=== PATIENT | male | born 2000 | race Caucasian/White ===

== ENCOUNTER 2025-04-07 07:11 | Outpatient (OUT) | payer BC, OTHER, SELFPAY ==
--- OUTSIDE RECORDS SUMMARY | 2024-11-04 05:00 | XMS_ITS ---
Author Organization 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 Name Role Phone Alo Mitchell Primary Care Provider Allergies Allergen (clinical drug ingredient) Drug/Non Drug Allergy documented on EMR Reaction Allergy Type Onset Date Status promethazine Phenergan loopy Drug Allergy Acti ve REASON FOR VISIT Presents to office with mom for cough, runny nose, sleeping the day, headache, fever x2 days Medications Medication SIG (Take, Route, Frequency, Duration) Notes Start Date End Date Status predniSONE 20 MG 3 tablets Orally Onc e a day for 5 days 11/04/2024 Active Clindamycin Phos-Benzoyl Perox 1.2-5 % APPLY TO FACE EVERY MORNING External for 90 Days Active Amoxicillin-Pot Clavulanate 875-125 MG 1 tablet Orally every 12 hrs for 10 days 10/24/2024 Active Ammonium Lactate 12 % 1 application Exte rnally Twice a day Active Tamiflu 75 MG 1 capsule Orally Twi ce a day for 5 days 11/04/2024 Active Tamiflu 75 MG 1 capsule Orally Twi ce a day for 5 days 11/04/2024 Active Doxycycline Hyclate 100 MG 1 capsule Ora lly Once a day Active Social History Tobacco Use: Social History Observation Description Date Details (start date - stop date) Never Smoker NA - NA Tobacco Use/Smoking Question Answer Notes Patient is a nonsmoker AUDIT-C (Standard) Question Answer Notes Did you have a drink containing alcohol in the p ast year? No Points 0 Interpretation Negative Vital Signs Temperature 98.2 degrees Fahrenheit 11/04/20 24 Blood pressure systolic 122 mm Hg 11/04/20 24 Blood pressure diastolic 82 mm Hg 024 Height 72 in 11/04/2024 Weight 194.8 lbs 11/04/2024 BMI 26.42 kg/m2 11/04/2024 Encounters Encounter Location Date Provider Diagnosis [facility] [address] [place] [address] 11/04/2024 Alo Micthell Acute bronchitis, unspecified organism J20.9 Assessments Encounter Date Diagnosis (ICD Code) Assessment Notes Treatment Notes Treatment Clinical Notes Section Notes 11/04/2024 Acute bronchitis, unspecified organism (ICD-10 - J20.9) Rest and drink more liquids, especially water. You may use a humidifier or vaporizer to help keep the drainage moist. Oabn-kvx-swwrlxz Nasal Saline may help the stuffy and runny nose. Use Ibuprofen and or Tylenol as needed for fever, chills, body aches or pain. Children 5 years old should not be given jhyg-ooa-feayvac cough and cold medications such as guaifenesin and dextromethorphan. If you're over age 5, you may try bwbs-bjx-qiymuuj cold medications such as guaifenesin and dextromethorphan, or multi-symptom cold reliever such as Dayquil to help reduce the symptoms. Antibiotics have been prescribed. You should take these until completed and follow the directions. Antibiotics can sometimes cause upset stomach, and in rare cases, serious allergic reactions or serious gastrointestinal problems. If you start having severe abdominal pain, severe vomiting, or bloody diarrhea, you should be reevaluated by your physician or urgent care immediately. Follow up with your Primary Care Provider or return to clinic if symptoms do not improve within 3-5 days. If you develop severe symptoms such as shortness of breath, repeated vomiting, coughing up blood, or chest pain you should go to the emergency room or call 911 Plan Of Treatment Medication Medication Name Sig Start Date Stop Date Notes predniSONE 20 MG 3 tablets Orally Once a day for 5 days Tamiflu 75 MG 1 capsule Orally Twice a day for 5 days 10/10 Tamiflu 75 MG 1 capsule Orally Twice a day for 5 days 10/10 Treatment Notes Assessment Notes Acute bronchitis, unspecified organism R est and drink more liquids, especially water. You may use a humidifier or vaporizer to help keep the drainage moist. Udxf-oru-psoayyt Nasal Saline may help the stuffy and runny nose. Use Ibuprofen and or Tylenol as needed for fever, chills, body aches or pain. Children 5 years old should not be given tezo-zli-gdlxgjf cough and cold medications such as guaifenesin and dextromethorphan. If you're over age 5, you may try jydq-ygy-nhnuqkr cold medications such as guaifenesin and dextromethorphan, or multi-symptom cold reliever such as Dayquil to help reduce the symptoms. Antibiotics have been prescribed. You should take these until completed and follow the directions. Antibiotics can sometimes cause upset stomach, and in rare cases, serious allergic reactions or serious gastrointestinal problems. If you start having severe abdominal pain, severe vomiting, or bloody diarrhea, you should be reevaluated by your physician or urgent care immediately. Follow up with your Primary Care Provider or return to clinic if symptoms do not improve within 3-5 days. If you develop severe symptoms such as shortness of breath, repeated vomiting, coughing up blood, or chest pain you should go to the emergency room or call 911 Next Appt Details Follow Up: 3-5 days if not i mproving, Reason: Progress Notes * AMAAD Khairamesh YolandaDOB: 8 (24 yo M)Acc No.[id number]:11/04/2024 Progress Note Patient: Rosemary PARIKH [facility] Karley :2000 A ge:24 Y S ex:Male Date:11/04/2024 Address:[address] [place], [place] [id number] Check In:08:40 AM ESTCheck O ut:09:58 AM EST Subjective: * Chief Complaints: * P resents to office with mom for cough, runny nose, sleeping the day, headache, fever x2 days * HPI: G eneral: sleepign more copugh - and getter worse - mom iwht inf a. B ronchitis: The patient complains of symptoms of bronchitis. The symptoms have been present for 1-2 days. The symptoms are moderate. The patient has not been exposed to sick contacts. Symptomatic treatment has included OTC medication. Associated symptoms include nasal congestion, postnasal drainage, congested ears, cough, fever, chills, body aches. * ROS: E NT: Ear pain d enies. H oarseness d enies. ? C ardiovascular: Edema d enies. P alpitations d enies. ? R espiratory: Comments S [facility] for details. G astrointestinal: Abdominal pain d enies. D iarrhea d enies. N ausea d enies. S kin: Rash d enies. * Active Problem List F90.9 ADHD (attention defi cit hyperactivity disorder) Modified On:02/11/2024U Status:confirmed F84.0 Autism Modified On:02/11/2024 Status:confirmed J21.9 Acute bronchiolitis Modified On:12/14/2023 Status:confirmed K11.5 Salivary duct calcul i Modified On:02/11/2024 Status:confirmed * Medical History: * Surgical History: T ubes in Bilateral Ears * Hospitalization/Major Diagno stic Procedure: * Family History: F ather: alive. M other: alive. S ister(s): alive. 1 sister(s) - healthy. . * Social History: T obacco Use: T obacco Use/Smoking P atient is a n onsmoker D rug/Alcohol: A LESLIE-C (Standard) D id you have a drink containing alcohol in the past year? N o P oints 0 I nterpretation N egative * Medications: T akingAmmonium Lactate 12 % Lotion 1 application Externally Twice a day Amoxicillin-Pot Clavulanate 875-125 MG Tablet 1 tablet Orally every 12 hrs Clindamycin Phos-Benzoyl Perox 1.2-5 % Gel APPLY TO FACE EVERY MORNING External Doxycycline Hyclate 100 MG Capsule 1 capsule Orally Once a day Medication List reviewed and reconciled with the patientTaking Ammonium Lactate 12 % Lotion 1 application Externally Twice a day Taking Amoxicillin-Pot Clavulanate 875-125 MG Tablet 1 tablet Orally every 12 hrs Taking Clindamycin Phos-Benzoyl Perox 1.2-5 % Gel APPLY TO FACE EVERY MORNING External Taking Doxycycline Hyclate 100 MG Capsule 1 capsule Orally Once a day Medication List reviewed and reconciled with the patient * Allergies: P henergan: loopyno[Allergies Verified] Objective: * Vitals: W t:194.8lbs, Ht: 72 in, BP:122/82mm Hg, Temp:98.2F, BMI:26.42Index, Ht-cm: 182.88 cm, Wt-k.36 kg. * Examination: G eneral Examination: GENERAL APPEARANCE: in no acute distress. EYES: EOMI. EARS: auditory canal clear, middle ear effusion noted.? NOSE: clear discharge, turbinates pale and swollen. ORAL CAVITY: mucosa moist. THROAT: no erythema, post-nasal drainage noted. NECK: neck supple, no thyromegaly. LYMPH NODES: n o cervical adenopathy. LUNGS: unlabored, clear to auscultation bilaterally. CARDIO: n o murmurs, regular rate and rhythm. ABDOMEN: bowel sounds present, no organomegaly . ? Assessment: * Assessment: 1. A cute bronchitis, unspecified organism - J20.9 (Primary) Plan: * Treatment: * Procedure Codes: * Preventive Medicine: Screenings/Counseling: B MD ACTION PLAN Above Normal BMI Follow-up D ietary management education, guidance, and counseling See treatment section of progress note for complete details of management plan. * Follow Up: 3 -5 days if not improving * * Sign off status: Completed Visit Status: C HK (Check Out) true * Provider: Joyce Mitchell ([facility])MD Date: 01/05/2024 Generated for Kee antoine/Perfecto/eTransmitting on: 0 04/07/2025 07:13 AM EDT History and Physical Notes * HPI (History of Present Illness) Category Sub-Category Detail Notes Category Not es General sleepign more copugh - and getter worse - mom iwht inf a Examination Category Sub-Category Detail Notes Category Not es General Examination GENERAL APPEARANCE: in no acute di stress EYES: EOMI EARS: auditory canal clear , middle ear effusion noted NOSE: clear discharge, tur binates pale and swollen THROAT: no erythema, post-na kalpesh drainage noted NECK: neck supple, no thyr omegaly CARDIO: no murmurs, regular rate and rhythm LUNGS: unlabored, clear to auscultation bilaterally ABDOMEN: bowel sounds present , no organomegaly LYMPH NODES: no cervical adenopat hy ORAL CAVITY: mucosa moist
--- OUTSIDE RECORDS SUMMARY | 2024-12-05 13:00 | XMS_ITS ---
Author Organization [facility] [place] Address [address] [place] [address] Care Team Providers Care Engine Assembler Name Role Phone Alo Mitchell Primary Care Provider Allergies Allergen (clinical drug ingredient) Drug/Non Drug Allergy documented on EMR Reaction Allergy Type Onset Date Status promethazine Phenergan loopy Drug Allergy Acti ve REASON FOR VISIT Agueda had influenza A- since then has had a lingering cough, Last week had fever, vomiting, diarrhea, OTC Severe cold and cough during the day, Nyquil at night Medications Medication SIG (Take, Route, Frequency, Duration) Notes Start Date End Date Status Doxycycline Hyclate 100 MG 1 capsule Ora lly Once a day Active Clindamycin Phos-Benzoyl Perox 1.2-5 % APPLY TO FACE EVERY MORNING External for 90 Days Active Amoxicillin-Pot Clavulanate 875-125 MG 1 tablet Orally every 12 hrs for 10 days 12/05/2024 Active Ammonium Lactate 12 % 1 application Exte rnally Twice a day Active Social History Tobacco Use: Social History Observation Description Date Details (start date - stop date) Never Smoker NA - NA Tobacco Use/Smoking Question Answer Notes Patient is a nonsmoker Vital Signs Temperature 98.1 degrees Fahrenheit 12/05/19 25 Blood pressure systolic 116 mm Hg 12/05/19 25 Blood pressure diastolic 74 mm Hg 025 Height 72 in 12/05/2024 Weight 196.8 lbs 12/05/2024 BMI 26.69 kg/m2 12/05/2024 Encounters Encounter Location Date Provider Diagnosis [facility] [address] [place] [address] 12/05/2024 Alo Mitchell Acute non-recurrent sinusitis, unspecified location J01.90 and Nasal congestion R09.81 Assessments Encounter Date Diagnosis (ICD Code) Assessment Notes Treatment Notes Treatment Clinical Notes Section Notes 12/05/2024 Acute non-recurrent sinusitis, unspecified location (ICD-10 - J01.90) Rest and drink more liquids, especially water. You may use a humidifier or vaporizer to help keep the drainage moist. Hube-ize-yldrmjo Nasal Saline may help the stuffy and runny nose. Use Ibuprofen and or Tylenol as needed for fever, chills, body aches or pain. Children 5 years old should not be given byjp-emx-esktapm cough and cold medications such as guaifenesin and dextromethorphan. If you're over age 5, you may try mpqf-mzc-repqegp cold medications such as guaifenesin and dextromethorphan, [...] if symptoms do not improve within 3-5 days 12/05/2024 Nasal congestion (ICD-10 - R09.81) Plan Of Treatment Medication Medication Name Sig Start Date Stop Date Notes Amoxicillin-Pot Clavulanate 875-125 MG 1 tablet Orally every 12 hrs for 10 days 12/05/2024 Treatment Notes Assessment Notes Acute non-recurrent sinusiti s, unspecified location Rest and drink more liquids, especially water. You may use a humidifier or vaporizer to help keep the drainage moist. Xqen-xrh-trhfgvl Nasal Saline may help the stuffy and runny nose. Use Ibuprofen and or Tylenol as needed for fever, chills, body aches or pain. Children 5 years old should not be given umma-zoi-gniadeo cough and cold medications such as guaifenesin and dextromethorphan. If you're over age 5, you may try ypjf-sko-wbzlqoh cold medications such as guaifenesin and dextromethorphan, [...] if symptoms do not improve within 3-5 days Next Appt Details Follow Up: 3-5 days if not i mproving, Reason: Progress Notes * Rosemary YBARRA YolandaDOB: 8 (24 yo M)Acc No.[id number]:12/05/2024 Progress Note Patient: Rosemary PARIKH Provider: Joyce Mitchell ([facility])MD :2000 A ge:24 Y S ex:Male Date:12/05/2024 Address:[address] [place], [place] [id number] Check In:04:54 PM ESTCheck O ut:05:35 PM EST Subjective: * Chief Complaints: * C lydia had influenza A- since then has had a lingering coughLast week had fever, vomiting, diarrheaOTC Severe cold and cough during the day, Nyquil at night * HPI: G eneral: good day and bad - but cough wi htmor yellow. S inusitis: The patient complains of symptoms of sinus infection. The symptoms have been present for 1-2 days. The symptoms are moderate. Symptomatic treatment has included OTC medication. Associated symptoms include headache, facial pain, runny nose, nasal congestion. * ROS: E ENT: hearing changes d enies. v isual changes d enies.?non-healing mouth sores d enies. s wollen glands or neck lumps d enies. h oarseness d enies. s ore throat d enies. d ifficulty swallowing d enies. n ose bleeds d enies. n dana congestion d enies. e ar ache d enies. e ar discharge?denies. r inging in ears d enies. l ight sensitivity d enies. e ye pain d enies. b lurring d enies. e ye irritation d enies. d ouble vision d enies.?vision loss d enies. G eneral/Constitutional: Sweats: D enies. F atigue d enies. S leep problems d enies. A norexia d enies. M alaise d enies. W eight loss d enies.?Fatigue or Weakness d enies. F ever or Chills d enies. S kin: Rash d enies. E NT: Comments S [facility] for details. C ardiovascular: Shortness of Breath w/lying flat d enies. L ightheadedness/dizziness d enies. E monica d enies. C hest tightness/ heavy pressure d enies.?Swelling of legs, ankles, or feet d enies. W aking up with shortness of breath d enies. C hest pain d enies. P alpitations d enies, denies. W eight gain d enies. R espiratory: Chronic or frequent cough d enies. C oughing up blood?denies. D ifficulty breathing d enies. P roductive cough d enies. S noring?denies. S hortness of breath that awakens from sleep (PND) d enies. C hest pain d enies, denies. C ough d enies. S putum production d enies. W heezing d enies, denies. G astrointestinal: Abdominal pain d enies. N ausea d enies. V omiting d enies. M usculoskeletal: Joint pain d enies. J oint Fluid d enies. B ack pain d enies. K nee pain d enies. N obdulio pain d enies. J oint Stiffness d enies. M uscle cramps d enies. W eakness of muscles d enies. A rthritis d enies. M uscle aches d enies. P ain in shoulder(s) d enies. S wollen joints d enies. * Active Problem List F90.9 ADHD (attention defi cit hyperactivity disorder) Modified On:02/11/2024W/U Status:confirmed F84.0 Autism Modified On:02/11/2024 Status:confirmed J21.9 Acute bronchiolitis Modified On:12/14/2023 Status:confirmed K11.5 Salivary duct calcul i Modified On:02/11/2024 Status:confirmed * Medical History: * Surgical History: T ubes in Bilateral Ears * Hospitalization/Major Diagno stic Procedure: D enies Past Hospitalization * Family History: F ather: alive. M other: alive. S ister(s): alive. 1 sister(s) - healthy. . * Social History: T obacco Use: T obacco Use/Smoking P atient is a n onsmoker * Medications: T akingAmmonium Lactate 12 % Lotion 1 application Externally Twice a day Clindamycin Phos-Benzoyl Perox 1.2-5 % Gel APPLY TO FACE EVERY MORNING External Doxycycline Hyclate 100 MG Capsule 1 capsule Orally Once a day Taking Ammonium Lactate 12 % Lotion 1 application Externally Twice a day Taking Clindamycin Phos-Benzoyl Perox 1.2-5 % Gel APPLY TO FACE EVERY MORNING External Taking Doxycycline Hyclate 100 MG Capsule 1 capsule Orally Once a day DiscontinuedAmoxicillin-Pot Clavulanate 875- 125 MG Tablet 1 tablet Orally every 12 hrs predniSONE 20 MG Tablet 3 tablets Orally Once a day Tamiflu(Oseltamivir Phosphate) 75 MG Capsule 1 capsule Orally Twice a day Tamiflu(Oseltamivir Phosphate) 75 MG Capsule 1 capsule Orally Twice a day Medication List reviewed and reconciled with the patientDiscontinued Amoxicillin-Pot Clavulanate 875-125 MG Tablet 1 tablet Orally every 12 hrs Discontinued predniSONE 20 MG Tablet 3 tablets Orally Once a day Discontinued Tamiflu(Oseltamivir Phosphate) 75 MG Capsule 1 capsule Orally Twice a day Discontinued Tamiflu(Oseltamivir Phosphate) 75 MG Capsule 1 capsule Orally Twice a day Medication List reviewed and reconciled with the patient * Allergies: Marva banuelos[Allergies Verified] Objective: * Vitals: W t:196.8lbs, Ht: 72 in, BP:116/74mm Hg, Temp:98.1F, BMI:26.69Index, Ht-cm: 182.88 cm, Wt-k.27 kg. * Examination: P hysical Exam: GENERAL: w ell developed, well nourished, in no acute distress. HEAD: n ormocephalic/atraumatic. EYES: p upils equal, round and reactive to light, conjunctivae and sclerae normal. EARS: n o deformity or lesion of external ear, canals and TM appear normal bilaterally, TM's intact, not inflamed with normal light reflex, hearing grossly normal to conversational speech. NOSE: n o deformity, discharge, inflammation, or lesions.? MOUTH: m ucous membranes moist, normal oropharynx and posterior pharynx without lesions or exudates, tongue normal, dentition normal. NECK: n obdulio supple, no masses or palpable cervical nodes, trachea midline, thyroid without nodules, masses, tenderness, or enlargement. CHEST: n o chest wall deformity, no chest wall tenderness.? LUNGS: n ormal respiratory effort and clear to auscultation, no wheezes, rales, or rhonchi, good air exchange. CARDIO: r egular rate and rhythm, normal S1 and S2, nor murmur, rub, or gallop. PULSES: n ormal capillary refill. ABDOMEN: s oft, non-distended, non-tender, no masses. MUSCULOSKELETAL: n o deformity or scoliosis noted, normal range of motion, joints normal, no erythema, edema, effusion, or ecchymosis. EXTREMITY: n o clubbing, cyanosis, edema, or deformity with normal ROM in both upper and lower bilateral extremities. NEUROLOGIC: g rossly normal. SKIN: n o rashes, ulcerations, or suspicious lesions. LYMPH NODES: n o cervical adenopathy, nodes normal. MENTAL STATUS: a lert and oriented x3, normal mood and affect. G eneral Examination: GENERAL APPEARANCE: in no acute distress, well developed, well nourished. ENT: ear and nose external appearance normal, tympanic membranes clear bilaterally, facial tenderness to palpation over sinuses. EYES: pupils equal, round, reactive to light and accomodations. ORAL CAVITY: mucosa moist. NECK: n obdulio supple, full range of motion, no cervical lymphadenopathy. LUNGS: c lear to auscultation bilaterally. CARDIO: no murmurs, regular rate and rhythm, S1, S2 normal. ABDOMEN: soft, nontender , not distended, bowel sounds are active. SKIN: no suspicious lesions, warm and dry. EXTREMITIES: no clubbing, cyanosis, or edema. NEUROLOGIC: nonfocal, motor strength of upper/lower extremities intact , sensory exam intact. Assessment: * Assessment: 1. A cute non-recurrent sinusitis, unspecified location - J01.90 (Primary) 2 .?Nasal congestion - R09.81 Plan: * Treatment: * Procedure Codes: * Preventive Medicine: Screenings/Counseling: B ME ACTION PLAN Above Normal BMI Follow-up D ietary management education, guidance, and counseling * Follow Up: 3 -5 days if not improving * * Sign off status: Completed Visit Status: C HK (Check Out) true * Provider: Joyce Mitchell ([facility])MD Date: 0 12/05/2024 Generated for Printi ng/Faxing/eTransmitting on: 0 04/07/2025 07:14 AM EDT History and Physical Notes * HPI (History of Present Illness) Category Sub-Category Detail Notes Category Not es General good day and ba d - but cough wi htmor yellow Examination Category Sub-Category Detail Notes Category Not es General Examination GENERAL APPEARANCE: in no ac paco distress, well developed, well nourished ENT: ear and nose externa l appearance normal, tympanic membranes clear bilaterally, facial tenderness to palpation over sinuses EYES: pupils equal, round, reactive to light and accomodations NECK: neck supple, full ra nge of motion, no cervical lymphadenopathy CARDIO: no murmurs, regular rate and rhythm, S1, S2 normal LUNGS: clear to auscultatio n bilaterally ABDOMEN: soft, nontender , no t distended, bowel sounds are active NEUROLOGIC: nonfocal, motor stre ngth of upper/lower extremities intact , sensory exam intact SKIN: no suspicious lesion s, warm and dry EXTREMITIES: no clubbing, cyanosi s, or edema ORAL CAVITY: mucosa moist Physical Exam GENERAL: well developed, well nouris hed, in no acute distress HEAD: normocephalic/atraum atic EYES: pupils equal, round and reactive to light, conjunctivae and sclerae normal EARS: no deformity or lesi on of external ear, canals and TM appear normal bilaterally, TM's intact, not inflamed with normal light reflex, hearing grossly normal to conversational speech NOSE: no deformity, discha rge, inflammation, or lesions MOUTH: mucous membranes eusebio st, normal oropharynx and posterior pharynx without lesions or exudates, tongue normal, dentition normal NECK: neck supple, no mass es or palpable cervical nodes, trachea midline, thyroid without nodules, masses, tenderness, or enlargement CHEST: no chest wall deform ity, no chest wall tenderness LUNGS: normal respiratory e ffort and clear to auscultation, no wheezes, rales, or rhonchi, good air exchange CARDIO: regular rate and rhy thm, normal S1 and S2, nor murmur, rub, or gallop PULSES: normal capillary ref ill ABDOMEN: soft, non-distended, non-tender, no masses RECTAL: MUSCULOSKELETAL: no deformity or scol iosis noted, normal range of motion, joints normal, no erythema, edema, effusion, or ecchymosis EXTREMITY: no clubbing, cyanosi s, edema, or deformity with normal ROM in both upper and lower bilateral extremities NEUROLOGIC: grossly normal SKIN: no rashes, ulceratio ns, or suspicious lesions LYMPH NODES: no cervical adenopat hy, nodes normal MENTAL STATUS: alert and oriented x 3, normal mood and affect
--- OUTSIDE RECORDS SUMMARY | 2025-03-20 10:30 | XMS_ITS ---
Author Organization [facility] in [place] Address [address] [place] [address] Care Team Providers Care Judo Teacher Name Role Phone Alo Mitchell Primary Care Provider Allergies Allergen (clinical drug ingredient) Drug/Non Drug Allergy documented on EMR Reaction Allergy Type Onset Date Status promethazine Phenergan loopy Drug Allergy Acti ve REASON FOR VISIT mother reports patient is staring off and does different hand movements, mother noticed these episodes started in dec but is starting to get worse Social History Tobacco Use: Social History Observation Description Date Details (start date - stop date) Never Smoker NA - NA Tobacco Use/Smoking Question Answer Notes Patient is a nonsmoker AUDIT-C (Standard) Question Answer Notes Did you have a drink containing alcohol in the p ast year? 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 Vital Signs Blood pressure systolic 118 mm Hg 03/20/20 25 Blood pressure diastolic 68 mm Hg 025 Height 72 in 03/20/2025 Weight 193.8 lbs 03/20/2025 BMI 26.28 kg/m2 03/20/2025 Procedures Procedure Date Ordered Date Performed Result Body Sit e EEG (Sleep Deprived) 03/20/2025 N/A Encounters Encounter Location Date Provider Diagnosis [facility] [address] [place] [address] 03/20/2025 Alo Mitchell Autism F84.0 and Myoclonic epileptic seizures G40.409 Assessments Encounter Date Diagnosis (ICD Code) Assessment Notes Treatment Notes Treatment Clinical Notes Section Notes 03/20/2025 Autism (ICD-10 - F84.0) 03/20/2025 Myoclonic epileptic seizures (ICD-10 - G40.409) Plan Of Treatment Pending Test Test Name Order Date HEMOGLOBIN A1C (GLYCO) 03/20/2025 INSULIN, TOTAL 03/20/2025 LIPID PANEL (CHOL/TRIG/HDL/LDL) 03/20/20 25 EEG (Sleep Deprived) 03/20/2025 THYROID PANEL (T4/TSH/FREE T3) 5 CMP (COMP MET SULLIVAN) w/eGFR CKD-EPI 2024 CBC WITH DIFF 03/20/2025 Progress Notes * Rosemary YBARRADOB: 8 (25 yo M)Acc No.[id number]:03/20/2025 Progress Note Patient: Rosemary PARIKH Provider: Joyce Mitchell ([facility])MD :2000 A ge:25 Y S ex:Male Date:03/20/2025 Address:[address] [place] [address] [id number] Check In:02:31 PM ESTCheck O ut:03:14 PM EST Subjective: * Chief Complaints: * M other reports patient is staring off and does different hand movements, mother noticed these episodes started in oct but is starting to get worse * HPI: G eneral: Hx myoclonic seizure sin soniya past haveing more strange behaviors and staring spells - doing more repeating himself used gto see JOSE MANUEL. * ROS: E ENT: hearing changes d [...] enies. F ever or Chills d enies. C ardiovascular: Shortness of Breath w/lying flat d enies. L ightheadedness/dizziness d enies. C hest tightness/ heavy pressure d enies. S welling of legs, ankles, or feet d enies. W aking up with shortness of breath d enies. C hest pain denies. P alpitations d enies. W eight gain d enies. R espiratory: Chronic or frequent cough d enies. C oughing up blood?denies. D ifficulty breathing d enies. P roductive cough d enies. S noring?denies. S hortness of breath that awakens from sleep (PND) d enies. C hest pain d enies. S putum production d enies. W heezing d enies. M usculoskeletal: Joint pain d [...] ADHD (attention defi cit hyperactivity disorder) Modified On:02/11/2024/U Status:confirmed F84.0 Autism Modified On:02/11/2024U Status:confirmed J21.9 Acute bronchiolitis Modified On:12/14/2023/U Status:confirmed K11.5 Salivary duct calcul i Modified On:02/11/2024U Status:confirmed G40.409 Myoclonic epileptic seizures Modified On:03/20/2025/U Status:confirmed * Medical History: * Surgical History: T ubes in Bilateral Ears * Hospitalization/Major Diagno stic Procedure: N o Hospitalization History. * Family History: F ather: alive. M other: alive. S ister(s): alive. 1 sister(s) - healthy. . * Social History: T obacco Use: T obacco Use/Smoking P atient is a n onsmoker D rug/Alcohol: A LESLIE-C (Standard) D id you have a drink containing alcohol in the past year? N o P oints 0 I nterpretation N egative * Medications: N one * Allergies: P henergan: loopyno[Allergies Verified] Objective: * Vitals: W t:193.8lbs, Ht: 72 in, BP:118/68mm Hg, BMI:26.28Index, Ht-cm: 182.88 cm, Wt-k.91 kg. * Examination: P hysical Exam: GENERAL: [...] and oriented x3, normal mood and affect. Assessment: * Assessment: 1. A utism - F84.0 (Primary) 2 . M yoclonic epileptic seizures - G40.409? Plan: * Treatment: 2. M yoclonic epileptic seizures L AB: HEMOGLOBIN A1C (GLYCO) L AB: INSULIN, TOTAL L AB: LIPID PANEL (CHOL/TRIG/HDL/LDL) L AB: THYROID PANEL (T4/TSH/FREE T3) L AB: CMP (COMP MET SULLIVAN) w/eGFR CKD-EPI L AB: CBC WITH DIFF P rocedure: EEG (Sleep Deprived) * Procedure Codes: * Preventive Medicine: Screenings/Counseling: B AR ACTION PLAN Above Normal BMI Follow-up D ietary management education, guidance, and counseling * * Sign off status: Completed Visit Status: C HK (Check Out) true * Provider: Joyce Mitchell ([facility])MD Date: 0 03/20/2025 Generated for Printi ng/Faxing/eTransmitting on: 0 04/07/2025 07:13 AM EDT History and Physical Notes * HPI (History of Present Illness) Category Sub-Category Detail Notes Category Not es General Hx myoclonic seizure sin soniya past haveing more strange behaviors and staring spells - doing more repeating himself used gto see JOSE MANUEL Examination Category Sub-Category Detail Notes Category Not es Physical Exam GENERAL: well developed, well nourished, in no acute distress HEAD: normocephalic/atraum atic [...]
--- OUTSIDE RECORDS SUMMARY | 2025-04-07 07:13 | XMS_ITS | Clinical Summary ---
Author Organization [facility] Address [address] [place] [address] Care Team Providers Care Campus Dean Name Role Phone Elvis Newell Primary Care Provider Social History Tobacco Use Types Packs/Day Years Used Date Smoking Tobacco: Never Assessed Sex and Gender Information Value Date Recorded Sex Assigned at Not on file Legal Sex Male 7:34 AM EST Gender Identity Not on file Sexual Orientation Not on file Plan of Treatment Not on file Care Teams Campus Dean Relationship Specialty Start Date End Date Elvis Newell [facility] [place] [address] PCP - General 12/03/05
== END 2025-04-07 07:12 | disposition home or self-care (01) ==
LOC: CARD 07:12
PROVIDERS: PCP Family Medicine; Visit Provider Family Medicine
DX: F84.0 Autistic disorder (principal); G40.909 Epilepsy, unspecified, not intractable, without status epilepticus
CPT/HCPCS: 95819

== ENCOUNTER 2025-04-10 08:00 | Outpatient (OUT) | payer BC, OTHER, SELFPAY ==
[2025-04-10 08:14] LABS: Basophils Percent Auto 0.5 % (0.2-2.0); Eosinophils Absolute Auto 0.2 10^3/uL (0.0-0.7); Eosinophils Percent Auto 2.9 % (0.9-7.0); Hemoglobin 16.9 g/dL (14.0-18.0); Immature Granulocytes Abs Auto 0.02 10^3/uL (0.00-0.03); Immature Granulocytes Pct Auto 0.3 % (0.0-0.5); Lymphocytes Absolute Auto 1.6 10^3/uL (1.2-3.8); Lymphocytes Percent Auto 25.1 % (20.5-60.0); Mean Corpuscular HGB Conc 35.2 g/dL (29.9-35.2); Mean Corpuscular Hemoglobin 29.3 pg (25.9-34.0); Mean Corpuscular Volume 83.2 fL (80.0-94.0); Mean Platelet Volume 8.6 fL (9.5-13.5); Monocytes Absolute Auto 0.6 10^3/uL (0.3-0.8); Monocytes Percent Auto 9.8 % (1.7-12.0); Neutrophils Absolute Auto 3.9 10^3/uL (1.4-6.5); Neutrophils Percent Auto 61.4 % (43.0-75.0); Platelet Count 303 10^3/uL (150-450); Red Blood Count 5.77 10^6/uL (4.70-6.10); Red Cell Distribution Width 12.4 % (11.0-15.0); White Blood Count 6.3 10^3/uL (4.0-11.0)
[2025-04-10 08:55] LABS: Estimated Average Glucose 117 mg/dL; Glycohemoglobin A1C 5.7 % (4.5-6.2)
[2025-04-10 09:22] LABS: Alanine Aminotransferase 37 U/L (16-63); Albumin Level 3.8 g/dL (3.4-5.0); Alkaline Phosphatase 84 U/L (46-116); Aspartate Amino Transferase 18 U/L (15-37); BUN Creatinine Ratio 17.5; Bilirubin Total 0.6 mg/dL (0.2-1.0); Calcium 9.8 mg/dL (8.5-10.1); Carbon Dioxide 28.8 mmol/L (21.0-32.0); Chloride 105 mmol/L (98-107); Cholesterol 171 mg/dL (<=200); Estimated GFR (African America >60 (>=60 mL/min/1.73m^2); Estimated GFR (Non-African Ame >60 (>=60 mL/min/1.73m^2); Free T3 3.56 pg/mL (2.18-3.98); Globulin 3.9 g/dL; Glucose 111 mg/dL (74-106); HDL Cholesterol 43 mg/dL (40-60); LDL Cholesterol Calculated 100.6 mg/dL; Potassium 3.8 mmol/L (3.5-5.1); Sodium 142 mmol/L (136-145); Thyroid Stimulating Hormone 0.889 uIU/mL (0.358-3.740); Total Protein 7.7 g/dL (6.4-8.2); Triglycerides 137 mg/dL (<=150); VLDL CHOLESTEROL 27.4 mg/dL
[2025-04-11 03:10] LABS: Insulin 8.3 uIU/mL (2.6-24.9)
== END 2025-04-10 08:01 | disposition home or self-care (01) ==
LOC: LAB 08:01
PROVIDERS: PCP Family Medicine; Visit Provider Family Medicine
DX: F84.0 Autistic disorder (principal); G40.409 Other generalized epilepsy and epileptic syndromes, not intractable, without status epilepticus
CPT/HCPCS: 36415; 80053; 80061; 83036; 83525; 84436; 84443; 84481; 85025